=== PATIENT | female | born 2005 | race Caucasian/White ===

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

== ENCOUNTER → 2025-02-17 | Outpatient (CLI) | payer OTHER, SELFPAY ==
[2025-02-17 09:57] LABS: Calcium 9.3 mg/dL (7.6-11.0)
[2025-02-17 09:59] LABS: PTHIN 6 pg/mL (11-61)
[2025-02-20 16:08] LABS: Vitamin D 1,25-Dihydroxy 31.8 pg/mL (24.8-81.5)
== END | disposition home or self-care (01) ==
LOC: LAB 08:16
PROVIDERS: PCP Family Medicine
DX: E21.3 Hyperparathyroidism, unspecified (principal)
CPT/HCPCS: 36415; 82306; 82310; 82652; 83970

== ENCOUNTER → 2025-05-19 | Outpatient (CLI) | payer OTHER, SELFPAY ==
--- NOTE | 2025-05-19 10:34 | MRI_ITS ---
PROCEDURE: MRI ABD WITH AND W/O CONTRAST 05/19/2025 REASON FOR EXAM: BENIGN NEOPLASM OF PANCREAS TECHNIQUE: Procedure Code: [id number] Modality: MR Procedure: MRI ABD WITH AND W/O CONTRAST Multiplanar and multisequence images were obtained. CONTRAST: Clariscan VOLUME: 15 mL COMPARISON: 03/17/2024 FINDINGS: Variable overall mild motion limitation. Axial T2 series 8 is moderately motion degraded. Diffusion was not performed. Liver: Unremarkable. Spleen: Unremarkable. Gallbladder/biliary: CHD measures 8 mm, previously 10 mm.. Nondilated CBD, up to 6 mm. Pancreas: Redemonstrated complex partially cystic lesion along the cranial aspect of the distal pancreatic body/tail measuring 12 x 10 mm and demonstrating mild internal complexity including septations up to 3 mm in thickness, again difficult to evaluate for septal enhancement given intrinsic T1 hyperintensity and the absence of subtraction sequences. This previously measured 11 x 9 mm, measured similarly. No suspicious ductal dilatation. Adrenals: Unremarkable. Kidneys: Unremarkable. Bowel: Not well evaluated by MRI; no gross bowel dilatation. Lymph nodes: Unremarkable. Vasculature: Unremarkable. Peritoneum: Trace to small volume pelvic free fluid. Bones: Unremarkable. MRI/MRI Abd WITH and W/O Contrast IMPRESSION: 1. Minimal if any change enlargement of a now 12 mm complex mostly cystic lesio n along the pancreatic tail since 03/17/2024, suboptimally delineated in the absence of MRCP. No suspicious ductal dilatatio n. As previously suggested, at a minimum, recommend follow-up multiphase pancreatic protocol MRI abdomen with and without contrast and with MRCP in 1 year per ACR recommendations to ensure ongoing relative stability, if EUS with FNA is not pe rformed. 2. Trace to small volume pelvic free fluid, potentially physiologic in this dem ographic. 3. Additional description as above. Reading Location: [id number]
== END | disposition home or self-care (01) ==
LOC: OPMRI 05-06 16:16 → MRI 10:16
PROVIDERS: Referring Provider Internal Medicine Endocrinology, Diabetes & Metabolism; Visit Provider Internal Medicine Endocrinology, Diabetes & Metabolism
DX: D13.6 Benign neoplasm of pancreas (principal)
CPT/HCPCS: 74183; A9575; A4216

== ENCOUNTER → 2025-06-13 | Outpatient (CLI) | payer OTHER, SELFPAY ==
[2025-06-13 13:08] LABS: Hematocrit 36.9 % (37-47); Hemoglobin 12.7 g/dL (12.0-15.0); Immature Granulocytes Count 0.010 X10^3/uL (0.0-0.0); Mean Corp Hgb Conc 34.4 g/dL (32-36); Mean Corpuscular Volume 89.6 fL (81-99); Mean Platelet Vol. 9.5 fl (6.2-12.0); NRBC Flagged by Analyzer 0 % (0-5); Platelet Count 230 K/mm3 (150-450); RBC Distribution Width CV 12.2 % (11.6-14.6); RBC Distribution Width SD 39.7 fl (35.1-43.9); Red Blood Count 4.12 M/mm3 (4.2-5.4); White Blood Count 7.5 K/mm3 (4.4-11.0)
[2025-06-13 14:09] LABS: AST(SGOT) 21 U/L (<=31); Alanine Aminotransfer ALT/SGPT 21 U/L (<=34); Albumin, Serum 4.2 g/dL (3.5-5.0); Alkaline Phosphatase 44 U/L (35-104); Anion Gap 11 (5-15); BUN 15 mg/dL (4-19); BUN/Creat Ratio 19.0 RATIO (10-20); Calcium,Total 8.5 mg/dL (7.6-11.0); Carbon Dioxide 21.9 mmol/L (21.0-32.0); Chloride 107 mmol/L (98-108); Globulin 2.5 g/dL (2.2-4.2); Glucose 107 mg/dL (70-99); Potassium 3.9 mmol/L (3.3-5.1); Vitamin D,25 Hydroxy 70.0 ng/mL (30-100)
[2025-06-14 05:07] LABS: PROLACTIN 23.2 ng/mL (4.8-33.4)
== END | disposition home or self-care (01) ==
LOC: LAB 12:52
PROVIDERS: PCP Internal Medicine; Referring Provider Physician Assistant; Visit Provider Physician Assistant
DX: E22.1 Hyperprolactinemia (principal); E04.0 Nontoxic diffuse goiter; E55.9 Vitamin D deficiency, unspecified
CPT/HCPCS: 36415; 80053; 82306; 84146; 84439; 84443; 85025

== ENCOUNTER → 2025-09-06 | Outpatient (CLI) | payer OTHER, SELFPAY ==
--- NOTE | 2025-09-06 12:44 | NM_ITS ---
PROCEDURE: HEPATOBILLIARY IMG W/PHARM INT 09/06/2025 REASON FOR EXAM: MEN 1 HAS PANCREACTIC CYST TECHNIQUE: Procedure Code: [id number] Modality: NM Procedure: HEPATOBILLIARY IMG W/PHARM INT Intravenous Choletec with planar imaging of the abdomen. Dynamic imaging was performed for 30 minutes following IV administration of 1.4 mcg CCK. Injection site not provided. RADIOPHARMACEUTICAL: 5.1 mCi technetium 99 mebrofenin COMPARISON: 05/19/2025 FINDINGS: Hepatic uptake: Unremarkable. Hepatic morphology: Unremarkable. Hepatic clearance: Unremarkable. Gallbladder visualization: Visualized by 30 minutes. Small-bowel visualization: Probably visualized by 75 minutes Gallbladder ejection fraction: 34% by 30 minutes NM/Hepatobilliary Img w/Pharm Int IMPRESSION: 1. No scintigraphic evidence of acute cholecystitis. 2. Limited dynamic evaluation as dynamic imaging was performed for only 30 johana thomas rather than 60 minutes. Measured ejection fraction of 34% by 30 minutes is borderline for mild biliary dyskinesia in the appropriate clinical context, but might reasonably have been expected to increase more clearly into the normal range if imaging we re continued to 60 minutes. Reading Location: [id number]
== END | disposition home or self-care (01) ==
LOC: NM 12:35
PROVIDERS: PCP Internal Medicine; Referring Provider Internal Medicine Gastroenterology; Visit Provider Internal Medicine Gastroenterology
DX: E31.21 Multiple endocrine neoplasia [MEN] type I (principal); K86.2 Cyst of pancreas; R10.11 Right upper quadrant pain; K83.8 Other specified diseases of biliary tract
CPT/HCPCS: 78227; A9537; J2805